=== PATIENT | female | born 2000 | race Caucasian/White ===

== ENCOUNTER 2022-10-03 20:18 | Inpatient (IN) | payer BC, SELFPAY ==
[2022-10-03 20:35] VITALS: BP 194/107; PULSE 120; RESP 22; TEMP 36.8; O2SAT 98; BMI 23.8
--- NOTE | 2022-10-03 20:39 | ECG_ITS ---
Test Reason : MED CLEAR Blood Pressure : / mmHG Vent. Rate : 110 BPM Atrial Rate : 110 BPM P-R Int : 184 ms QRS Dur : 086 ms QT Int : 314 ms P-R-T Axes : 056 074 021 degrees QTc Int : 424 ms Sinus tachycardia Otherwise normal ECG No previous ECGs available Referred By: Brigette Griffin Electronically Signed By:Jarrett Mittal
[2022-10-03 21:12] LABS: Basophils Percent Auto 0.4 % (0-2); Eosinophils Percent Auto 0.4 % (0-4); Hematocrit 41.2 % (37.0-47.0); Hemoglobin 13.6 g/dl (12.0-16.0); Imm Gran Abs Auto 0.02 X10*3/uL (0.00-0.03); Imm Gran Pct Auto 0.2 % (0.0-0.4); Lymphocytes Absolute Auto 1.9 X10*3/uL (1.2-4.9); Lymphocytes Percent Auto 22.7 % (20-40); MANUAL DIFF FLAG NO; Mean Corpuscular Hemoglobin 28.2 pg (27.0-33.0); Mean Corpuscular Volume 85.5 fL (80.0-98.0); Mean Platelet Volume 10.3 fL (9.4-12.3); Monocytes Absolute Auto 0.5 X10*3/uL (0.1-1.2); Monocytes Percent Auto 6.1 % (2-11); Neutrophils Percent Auto 70.2 % (45-73); Platelet Count 294 X10*3/uL (160-400); Red Blood Count 4.82 X10*6/uL (4.20-5.50); Red Cell Distribution Width 12.8 % (11.0-16.0); White Blood Count 8.5 X10*3/uL (4.8-10.8)
[2022-10-03 21:22] LABS: Appearance Urine Clear; Color Urine Yellow; Glucose Urine UA Negative (Negative); Leukocyte Esterase Urine Moderate (2+) (Negative); Nitrite Urine Negative (Negative); UMIC TRIGGER UA YES; Urine Blood Trace (Negative); Urine Ketones Trace mg/dL (Negative); Urine Protein Negative (Neg-Trace)
[2022-10-03 21:24] VITALS: BP 155/89; PULSE 118; RESP 20
[2022-10-03 21:27] LABS: Bacteria Urine 1+ (None Seen); Hyaline Casts Urine 0-2 /LPF (0-2); WBC Urine 21-50 /HPF (0-5)
--- NOTE | 2022-10-03 21:27 | ED_ITS ---
HPI - Psych General Chief Complaint: Psychiatric Symptoms Stated Complaint: crisis Time Seen by Provider: 10/03/22 21:25 Source: patient Mode of arrival: ambulatory Limitations: no limitations History of Present Illness HPI Narrative: Patient with depression on sertraline given by PCP has not seen a psychiatrist does not follow with any therapist with depressed for a while with a plan to kill herself stab herself very anxious on arrival no history of substance abuse patient was very anxious on arrival with blood pressure 194/107 with pulse rate of 120 no fever no chills denies any urinary symptoms Related Data Home Medications Medication Instructions Recorded Confirmed ibuprofen 400 mg tablet 1 tab PO Q6H PRN mild pain 10/03/22 10/03/22 norgestimate-ethinyl estradiol 1 tab PO DAILY 10/03/22 10/03/22 0.18 mg/0.215mg/0.25mg-35 mcg(28)tablet (Tri-Estarylla) sertraline 100 mg tablet 1 tab PO DAILY 10/03/22 10/03/22 Allergies Allergy/AdvReac Type Severity Reaction Status Date / Time No Known Allergies Allergy Unverified 05/04/20 17:16 Review of Systems Review of Systems: Yes all other systems are reviewed and are negative [facility] Social History Social History Advance Directives: No Advance Directives Information Provided: No Healthcare Proxy: No Guardian: No Physical Exam Vital Signs: Vital Signs: Last Vital Signs Temp 97.6 F 10/04/22 01:17 Pulse 107 H 10/04/22 01:17 Resp 15 10/04/22 01:17 BP 136/83 10/04/22 01:17 Pulse Ox 98 10/04/22 01:17 O2 Del Method 10/04/22 01:17 BMI result Body Mass Index 23.8 Appearance: Alert. Oriented X3. No acute distress. Anxious Eyes: PERRLA, No Nystagmus ENT: Pharynx normal. Oral Mucosa moist Neck: Normal inspection. Neck supple. CVS: Normal heart rate and rhythm. Pulses normal. Respiratory: No respiratory distress. Equal air entry bilateral, no wheezing/rales/rhonchi Abdomen: Soft and nontender. Bowel sounds are present, no mass palpable, no CVA tenderness Skin: Skin warm and dry. Normal skin color. Normal skin turgor. Extremities: No lower extremity edema. No calf tenderness psych: Depressed mood no clear-cut plan feels suicidal no hallucination or delusion Neuro: Oriented X 3. No motor deficit. No sensory deficit.No cerebellar signs , cranial nerves II-XII intact Course Reevaluation(s) Reevaluation #1: Patient seen by care team advised discharge patient home as respiratory fused to take the patient follow-up with outpatient Time: 03:33 Medications Administered Generic Name Dose Route Start Last Admin Trade Name Freq PRN Reason Stop Dose Admin Cefuroxime Axetil 250 mg 10/04/22 09:00 10/04/22 07:32 Cefuroxime Axetil 250 Mg Tablet PO 10/09/22 23:00 250 mg BID YAMILE Administration Ibuprofen 400 mg 10/04/22 01:17 10/04/22 01:52 Ibuprofen 400 Mg Tablet PO 400 mg Q6H PRN Administration mild pain Sertraline HCl 100 mg 10/04/22 09:00 10/04/22 07:32 Sertraline Hcl 100 Mg Tablet PO 100 mg DAILY YAMILE Administration Discontinued Medications Generic Name Dose Route Start Last Admin Trade Name Freq PRN Reason Stop Dose Admin Cefuroxime Axetil 250 mg 10/04/22 01:07 10/04/22 01:19 Cefuroxime Axetil 250 Mg Tablet PO 10/04/22 01:08 250 mg ONCE ONE Administration Lorazepam 2 mg 10/03/22 21:25 10/03/22 21:29 Lorazepam 1 Mg Tablet PO 10/03/22 21:26 2 mg ONCE ONE Administration Medical Decision Making Medical Decision Making MDM Narrative: Patient depression seen by care team plan for inpatient admission Lab Data [facility] Lab Attestation statement: I reviewed the patient's lab results. 10/03/22 21:02 10/03/22 21:02 Labs: Lab Results 10/03/22 10/03/22 10/03/22 Range/Units 21:02 21:02 21:02 WBC 8.5 (4.8-10.8) X10*3/uL RBC 4.82 (4.20-5.50) X10*6/uL Hgb 13.6 (12.0-16.0) g/dl Hct 41.2 (37.0-47.0) % MCV 85.5 (80.0-98.0) fL MCH 28.2 (27.0-33.0) pg MCHC 33.0 (31.0-35.0) g/dl RDW 12.8 (11.0-16.0) % Plt Count 294 (160-400) X10*3/uL MPV 10.3 (9.4-12.3) fL Immature Gran % (Auto) 0.2 (0.0-0.4) % Neut % (Auto) 70.2 (45-73) % Lymph % (Auto) 22.7 (20-40) % [place] % (Auto) 6.1 (2-11) % Eos % (Auto) 0.4 (0-4) % Baso % (Auto) 0.4 (0-2) % Lymph # (Auto) 1.9 (1.2-4.9) X10*3/uL [place] # (Auto) 0.5 (0.1-1.2) X10*3/uL Eos # (Auto) 0.0 (0.0-0.4) X10*3/uL Baso # (Auto) 0.0 (0.0-0.2) X10*3/uL Abs Immat Gran (auto) 0.02 (0.00-0.03) X10*3/uL Absolute Neuts (auto) 6.0 (2.0-8.3) x10*3/uL Absolute Nucleated RBC 0.000 (0.0-0.012) X10*3/uL Nucleated RBC % (auto) 0.0 (0.0-0.2) /100WBC Sodium 138 (135-145) mmol/L Potassium 3.8 (3.3-5.1) mmol/L Chloride 104 (96-108) mmol/L Carbon Dioxide 24 (22-29) mmol/L Anion Gap 14 (12-20) BUN 11 (9-16) mg/dL Creatinine 0.68 (0.5-1.4) mg/dL Estim Creat Clear Calc 104.3 Estimated GFR > 60 Random Glucose 138 H (60-115) mg/dL Calcium 9.3 (8.4-10.2) mg/dL Magnesium 1.6 (1.6-2.6) mg/dL Total Bilirubin 0.3 (0.0-1.0) mg/dL AST 17 (5-31) U/L ALT 13 (0-31) U/L Alkaline Phosphatase 76 (39-117) U/L Total Protein 7.3 (6.5-8.0) g/dL Albumin 4.3 (3.5-5.0) g/dL Lipase 17 (8-78) U/L TSH (0.32-4.0) uIU/mL Beta HCG, Quant < 2 mIU/mL Urine Color Urine Appearance Urine pH (5.0-9.0) Ur Specific [place] (1.005-1.025) Urine Protein (Neg-Trace) mg/dL Urine Glucose (UA) (Negative) mg/dL Urine Ketones (Negative) mg/dL Urine Blood (Negative) Urine Nitrite (Negative) Ur Leukocyte Esterase (Negative) Urine RBC (0-2) /HPF Urine WBC (0-5) /HPF Ur Squamous Epith Cells (0-2) /HPF Urine Bacteria (None Seen) Hyaline Casts (0-2) /LPF Urine Test (NEGATIVE) Urine Opiates Screen (Not Detect) Urine Fentanyl Screen (Not Detect) Ur Barbiturates Screen (Not Detect) Ur Phencyclidine Scrn (Not Detect) Ur Amphetamines Screen (Not Detect) U Benzodiazepines Scrn (Not Detect) Urine Cocaine Screen (Not Detect) U Marijuana (THC) Screen (Not Detect) Ethyl Alcohol < 10 mg/dL Influenza Type A (PCR) (Negative) Influenza Type B (PCR) (Negative) RSV RNA Qual (PCR) (Negative) SARS-CoV-2 RNA (RT-PCR) (Negative) 10/03/22 10/03/22 10/03/22 Range/Units 21:02 21:02 21:07 WBC (4.8-10.8) X10*3/uL RBC (4.20-5.50) X10*6/uL Hgb (12.0-16.0) g/dl Hct (37.0-47.0) % MCV (80.0-98.0) fL MCH (27.0-33.0) pg MCHC (31.0-35.0) g/dl RDW (11.0-16.0) % Plt Count (160-400) X10*3/uL MPV (9.4-12.3) fL Immature Gran % (Auto) (0.0-0.4) % Neut % (Auto) (45-73) % Lymph % (Auto) (20-40) % [place] % (Auto) (2-11) % Eos % (Auto) (0-4) % Baso % (Auto) (0-2) % Lymph # (Auto) (1.2-4.9) X10*3/uL [place] # (Auto) (0.1-1.2) X10*3/uL Eos # (Auto) (0.0-0.4) X10*3/uL Baso # (Auto) (0.0-0.2) X10*3/uL Abs Immat Gran (auto) (0.00-0.03) X10*3/uL Absolute Neuts (auto) (2.0-8.3) x10*3/uL Absolute Nucleated RBC (0.0-0.012) X10*3/uL Nucleated RBC % (auto) (0.0-0.2) /100WBC Sodium (135-145) mmol/L Potassium (3.3-5.1) mmol/L Chloride (96-108) mmol/L Carbon Dioxide (22-29) mmol/L Anion Gap (12-20) BUN (9-16) mg/dL Creatinine (0.5-1.4) mg/dL Estim Creat Clear Calc Estimated GFR Random Glucose (60-115) mg/dL Calcium (8.4-10.2) mg/dL Magnesium (1.6-2.6) mg/dL Total Bilirubin (0.0-1.0) mg/dL AST (5-31) U/L ALT (0-31) U/L Alkaline Phosphatase (39-117) U/L Total Protein (6.5-8.0) g/dL Albumin (3.5-5.0) g/dL Lipase (8-78) U/L TSH 3.19 (0.32-4.0) uIU/mL Beta HCG, Quant mIU/mL Urine Color Urine Appearance Urine pH (5.0-9.0) Ur Specific [place] (1.005-1.025) Urine Protein (Neg-Trace) mg/dL Urine Glucose (UA) (Negative) mg/dL Urine Ketones (Negative) mg/dL Urine Blood (Negative) Urine Nitrite (Negative) Ur Leukocyte Esterase (Negative) Urine RBC (0-2) /HPF Urine WBC (0-5) /HPF Ur Squamous Epith Cells (0-2) /HPF Urine Bacteria (None Seen) Hyaline Casts (0-2) /LPF Urine Test NEGATIVE (NEGATIVE) Urine Opiates Screen (Not Detect) Urine Fentanyl Screen (Not Detect) Ur Barbiturates Screen (Not Detect) Ur Phencyclidine Scrn (Not Detect) Ur Amphetamines Screen (Not Detect) U Benzodiazepines Scrn (Not Detect) Urine Cocaine Screen (Not Detect) U Marijuana (THC) Screen (Not Detect) Ethyl Alcohol mg/dL Influenza Type A (PCR) NEGATIVE (Negative) Influenza Type B (PCR) NEGATIVE (Negative) RSV RNA Qual (PCR) NEGATIVE (Negative) SARS-CoV-2 RNA (RT-PCR) NEGATIVE (Negative) 10/03/22 10/03/22 Range/Units 21:08 21:08 WBC (4.8-10.8) X10*3/uL RBC (4.20-5.50) X10*6/uL Hgb (12.0-16.0) g/dl Hct (37.0-47.0) % MCV (80.0-98.0) fL MCH (27.0-33.0) pg MCHC (31.0-35.0) g/dl RDW (11.0-16.0) % Plt Count (160-400) X10*3/uL MPV (9.4-12.3) fL Immature Gran % (Auto) (0.0-0.4) % Neut % (Auto) (45-73) % Lymph % (Auto) (20-40) % [place] % (Auto) (2-11) % Eos % (Auto) (0-4) % Baso % (Auto) (0-2) % Lymph # (Auto) (1.2-4.9) X10*3/uL [place] # (Auto) (0.1-1.2) X10*3/uL Eos # (Auto) (0.0-0.4) X10*3/uL Baso # (Auto) (0.0-0.2) X10*3/uL Abs Immat Gran (auto) (0.00-0.03) X10*3/uL Absolute Neuts (auto) (2.0-8.3) x10*3/uL Absolute Nucleated RBC (0.0-0.012) X10*3/uL Nucleated RBC % (auto) (0.0-0.2) /100WBC Sodium (135-145) mmol/L Potassium (3.3-5.1) mmol/L Chloride (96-108) mmol/L Carbon Dioxide (22-29) mmol/L Anion Gap (12-20) BUN (9-16) mg/dL Creatinine (0.5-1.4) mg/dL Estim Creat Clear Calc Estimated GFR Random Glucose (60-115) mg/dL Calcium (8.4-10.2) mg/dL Magnesium (1.6-2.6) mg/dL Total Bilirubin (0.0-1.0) mg/dL AST (5-31) U/L ALT (0-31) U/L Alkaline Phosphatase (39-117) U/L Total Protein (6.5-8.0) g/dL Albumin (3.5-5.0) g/dL Lipase (8-78) U/L TSH (0.32-4.0) uIU/mL Beta HCG, Quant mIU/mL Urine Color Yellow Urine Appearance Clear Urine pH 6.0 (5.0-9.0) Ur Specific [place] 1.020 (1.005-1.025) Urine Protein Negative (Neg-Trace) mg/dL Urine Glucose (UA) Negative (Negative) mg/dL Urine Ketones Trace (Negative) mg/dL Urine Blood Trace H (Negative) Urine Nitrite Negative (Negative) Ur Leukocyte Esterase Moderate (2+) H (Negative) Urine RBC 3-5 H (0-2) /HPF Urine WBC 21-50 H (0-5) /HPF Ur Squamous Epith Cells 6-10 (0-2) /HPF Urine Bacteria 1+ (None Seen) Hyaline Casts 0-2 (0-2) /LPF Urine Test (NEGATIVE) Urine Opiates Screen Not Detected (Not Detect) Urine Fentanyl Screen Not Detected (Not Detect) Ur Barbiturates Screen Not Detected (Not Detect) Ur Phencyclidine Scrn Not Detected (Not Detect) Ur Amphetamines Screen Not Detected (Not Detect) U Benzodiazepines Scrn Not Detected (Not Detect) Urine Cocaine Screen Not Detected (Not Detect) U Marijuana (THC) Screen POSITIVE H (Not Detect) Ethyl Alcohol mg/dL Influenza Type A (PCR) (Negative) Influenza Type B (PCR) (Negative) RSV RNA Qual (PCR) (Negative) SARS-CoV-2 RNA (RT-PCR) (Negative) Discharge Plan Discharge Clinical Impression: Suicidal ideation, Depression Patient Disposition: Still a Patient Prescriptions: No Action sertraline 100 mg tablet 1 tab PO DAILY ibuprofen 400 mg tablet 1 tab PO Q6H PRN (Reason: mild pain) norgestimate-ethinyl estradiol [Tri-Estarylla] 0.18/0.215/0.25 mg-35 mcg (28) tablet 1 tab PO DAILY Interventions: Hayes-Suicide Risk Severity Scale Last Done: 10/04/22 04:40
[2022-10-03] MEDS: LORazepam 1 MG TABLET 2 MG PO (21:29)
[2022-10-03 21:39] LABS: Amphetamine Screen Urine Not Detected (Not Detect); Barbiturates, Urine Not Detected (Not Detect); Benzodiazepines Screen Urine Not Detected (Not Detect); Cannabinoid Screen Urine POSITIVE (Not Detect); Cocaine Screen Urine Not Detected (Not Detect); Fentanyl, urine Not Detected (Not Detect); Opiate Screen Urine Not Detected (Not Detect); Phencyclidine Screen Urine Not Detected (Not Detect)
[2022-10-03 21:41] LABS: Alanine Aminotransferase 13 U/L (0-31); Albumin Level 4.3 g/dL (3.5-5.0); Alkaline Phosphatase 76 U/L (39-117); Anion Gap 14 (12-20); Aspartate Amino Transferase 17 U/L (5-31); Bilirubin Total 0.3 mg/dL (0.0-1.0); Blood Urea Nitrogen 11 mg/dL (9-16); Calcium 9.3 mg/dL (8.4-10.2); Carbon Dioxide 24 mmol/L (22-29); Chloride 104 mmol/L (96-108); Creatinine Clr Calc Pharmacy 104.3; Estimated Glomerular Filt Rate > 60; Glucose Random 138 mg/dL (60-115); Potassium 3.8 mmol/L (3.3-5.1); Sodium 138 mmol/L (135-145); Total Protein 7.3 g/dL (6.5-8.0)
[2022-10-03 21:49] LABS: Ethanol < 10 mg/dL; HCG Quantitative < 2 mIU/mL; Lipase 17 U/L (8-78); Magnesium 1.6 mg/dL (1.6-2.6)
[2022-10-03 22:02] LABS: TSH reflex Free T4 3.19 uIU/mL (0.32-4.0)
[2022-10-03 22:04] LABS: Influenza A PCR NEGATIVE (Negative); Influenza B PCR NEGATIVE (Negative); Resp Syncy Virus RNA Qual PCR NEGATIVE (Negative); SARS COV2 PCR INHOUSE NEGATIVE (Negative)
[2022-10-03 22:28] LABS: UPreg QC Valid YES; Urine Pregnancy NEGATIVE (NEGATIVE)
[2022-10-04 01:17] VITALS: BP 136/83; PULSE 107; RESP 15; TEMP 36.4; O2SAT 98
[2022-10-04] MEDS: Ibuprofen 400 MG TABLET PO (01:52)
--- NOTE | 2022-10-04 02:14 | PC.NURSE ---
Patient received Ativan 2 mg PO @ 2128 with + effect, Ceftin 250 mg PO @ 118 for UTI, Motrin 400 mg administered at 0152 with pending, Patient engaged [facility] team clinician, disposition is section 12 inpatient bed search, behavior non concerning, VSS, will continue to monitor.
--- NOTE | 2022-10-04 07:09 | PC.NURSE ---
assumed care of patient, pt resting comfortably, breakfast tray delivered, VSS, awaiting BH placement
[2022-10-04] MEDS: Sertraline HCL 100 MG TABLET PO (07:32)
--- NOTE | 2022-10-04 13:27 | PC.NURSE ---
nurse to nurse report given
[2022-10-04 16:48] VITALS: BP 132/82; PULSE 105; TEMP 36.4; O2SAT 96
--- NOTE | 2022-10-04 16:49 | PC.ADMIT ---
pt is a 22 year old female who presented to [facility] with SI with intent to stab herself. pt had AH/VH in the emergency room. pt has PMH of depression and SI. during admission, pt is pleasant and answered all questions. pt signed a 3 day on 10/04/22, so she could get back home to college. pt says setraline was helping her with the voices. start treatment plan and promote safety
--- NOTE | 2022-10-04 16:59 | PC.NURSE ---
pt signed a 3 day on 10/04/22.
--- NOTE | 2022-10-04 22:27 | PC.NURSE ---
pt would like her control and sertailine at night.
[2022-10-05 06:57] LABS: Estimated Average Glucose 85 mg/dL; Hemoglobin A1c % 4.6 %
[2022-10-05 07:00] LABS: Cholesterol 189 mg/dL; HDL Cholesterol 60 mg/dL; LDL Cholesterol Calculated 103 mg/dl; Triglycerides 134 mg/dL
--- NOTE | 2022-10-05 08:05 | HO.PSYADMNOT ---
[facility] Date of Service: 10/05/22 Chief Complaint: si Sources of Information: patient interviewed, chart reviewed and crisis/core team assessment reviewed HPI Subjective Notes: Conditional Voluntary and 3 Day Healthcare Proxy: No Guardianship: No Medical Problems Affecting Mental Status: No Narrative: David is a 22-year-old white, single, C student. This is her 1st psychiatric hospitalization. She states that she started to have strong feelings of irritability, anger hand suicidal ideations. She denied any specific plans but in the emergency room she had mentioned about urges to stab herself in the abdomen. She denies any known triggers or events that may have led to this. She also was concerned about hurting others without any specific plans to hurt anyone in particular. She has no history of such behavior towards others. She lives at home with her parents. She decided that she did not feel safe and came to the emergency room and eventually signed herself in. She states that she has had problems with depression and anxiety for a few years and has been on Zoloft now, 100 mg for about a year and a half with marked improvements in all of her symptoms. No recent changes to her dose. She gets this through her software maintenance engineer, Dr. Phillips. She denies any history of substance abuse. She has been eating and sleeping adequately. No major weight changes. She is not currently seeing a therapist but has in the past. When asked about anything else that may be important to know about her she stated ?being queer?. She denies being out with this and something that she is wondering about. Past Psychiatric History: Outpatient treatment. No psychotherapy currently Medical Evaluation Reviewed: Yes (UTI-being treated) [facility] Narrative: Current episode of UTI Narrative: None Family History: She states that all of her family members, parents, grandparents, brother have problems with anxiety and depression. No specific treatments. Social History: David is the youngest of 2. She has a brother who is about a year older and works with their father as a singh. She states that she graduated from high school and did quite well being the 14th in her class and is now at [employer] studying art. She denies any history of abuse growing up. She states that she has some friends. She is not in any relationships. She has no children. Substance History: Denied Trauma History: Denied Diagnostics Vital Signs (24Hr): Vital Signs - 24 hr 10/04/22 16:48 Temperature 97.6 F Pulse Rate 105 H Blood Pressure 132/82 Pulse Oximetry 96 Oxygen Delivery Method Room Air BMI result Body Mass Index 23.8 Labs 10/03/22 21:02 10/03/22 21:02 Labs: Laboratory Results - last 48 hr 10/03/22 10/03/22 10/03/22 21:02 21:02 21:02 WBC 8.5 RBC 4.82 Hgb 13.6 Hct 41.2 MCV 85.5 MCH 28.2 MCHC 33.0 RDW 12.8 Plt Count 294 MPV 10.3 Immature Gran % (Auto) 0.2 Neut % (Auto) 70.2 Lymph % (Auto) 22.7 [place] % (Auto) 6.1 Eos % (Auto) 0.4 Baso % (Auto) 0.4 Lymph # (Auto) 1.9 [place] # (Auto) 0.5 Eos # (Auto) 0.0 Baso # (Auto) 0.0 Abs Immat Gran (auto) 0.02 Absolute Neuts (auto) 6.0 Absolute Nucleated RBC 0.000 Nucleated RBC % (auto) 0.0 Sodium 138 Potassium 3.8 Chloride 104 Carbon Dioxide 24 Anion Gap 14 BUN 11 Creatinine 0.68 Estim Creat Clear Calc 104.3 Estimated GFR > 60 Random Glucose 138 H Estimat Average Glucose Hemoglobin A1c % Calcium 9.3 Magnesium 1.6 Total Bilirubin 0.3 AST 17 ALT 13 Alkaline Phosphatase 76 Total Protein 7.3 Albumin 4.3 Triglycerides Cholesterol LDL Cholesterol, Calc HDL Cholesterol Lipase 17 TSH Beta HCG, Quant < 2 Urine Color Urine Appearance Urine pH Ur Specific [place] Urine Protein Urine Glucose (UA) Urine Ketones Urine Blood Urine Nitrite Ur Leukocyte Esterase Urine RBC Urine WBC Ur Squamous Epith Cells Urine Bacteria Hyaline Casts Urine Test Urine Opiates Screen Urine Fentanyl Screen Ur Barbiturates Screen Ur Phencyclidine Scrn Ur Amphetamines Screen U Benzodiazepines Scrn Urine Cocaine Screen U Marijuana (THC) Screen Ethyl Alcohol < 10 Influenza Type A (PCR) Influenza Type B (PCR) RSV RNA Qual (PCR) SARS-CoV-2 RNA (RT-PCR) 10/03/22 10/03/22 10/03/22 21:02 21:02 21:07 WBC RBC Hgb Hct MCV MCH MCHC RDW Plt Count MPV Immature Gran % (Auto) Neut % (Auto) Lymph % (Auto) [place] % (Auto) Eos % (Auto) Baso % (Auto) Lymph # (Auto) [place] # (Auto) Eos # (Auto) Baso # (Auto) Abs Immat Gran (auto) Absolute Neuts (auto) Absolute Nucleated RBC Nucleated RBC % (auto) Sodium Potassium Chloride Carbon Dioxide Anion Gap BUN Creatinine Estim Creat Clear Calc Estimated GFR Random Glucose Estimat Average Glucose Hemoglobin A1c % Calcium Magnesium Total Bilirubin AST ALT Alkaline Phosphatase Total Protein Albumin Triglycerides Cholesterol LDL Cholesterol, Calc HDL Cholesterol Lipase TSH 3.19 Beta HCG, Quant Urine Color Urine Appearance Urine pH Ur Specific [place] Urine Protein Urine Glucose (UA) Urine Ketones Urine Blood Urine Nitrite Ur Leukocyte Esterase Urine RBC Urine WBC Ur Squamous Epith Cells Urine Bacteria Hyaline Casts Urine Test NEGATIVE Urine Opiates Screen Urine Fentanyl Screen Ur Barbiturates Screen Ur Phencyclidine Scrn Ur Amphetamines Screen U Benzodiazepines Scrn Urine Cocaine Screen U Marijuana (THC) Screen Ethyl Alcohol Influenza Type A (PCR) NEGATIVE Influenza Type B (PCR) NEGATIVE RSV RNA Qual (PCR) NEGATIVE SARS-CoV-2 RNA (RT-PCR) NEGATIVE 10/03/22 10/03/22 10/05/22 21:08 21:08 06:26 WBC RBC Hgb Hct MCV MCH MCHC RDW Plt Count MPV Immature Gran % (Auto) Neut % (Auto) Lymph % (Auto) [place] % (Auto) Eos % (Auto) Baso % (Auto) Lymph # (Auto) [place] # (Auto) Eos # (Auto) Baso # (Auto) Abs Immat Gran (auto) Absolute Neuts (auto) Absolute Nucleated RBC Nucleated RBC % (auto) Sodium Potassium Chloride Carbon Dioxide Anion Gap BUN Creatinine Estim Creat Clear Calc Estimated GFR Random Glucose Estimat Average Glucose 85 Hemoglobin A1c % 4.6 Calcium Magnesium Total Bilirubin AST ALT Alkaline Phosphatase Total Protein Albumin Triglycerides Cholesterol LDL Cholesterol, Calc HDL Cholesterol Lipase TSH Beta HCG, Quant Urine Color Yellow Urine Appearance Clear Urine pH 6.0 Ur Specific [place] 1.020 Urine Protein Negative Urine Glucose (UA) Negative Urine Ketones Trace Urine Blood Trace H Urine Nitrite Negative Ur Leukocyte Esterase Moderate (2+) H Urine RBC 3-5 H Urine WBC 21-50 H Ur Squamous Epith Cells 6-10 Urine Bacteria 1+ Hyaline Casts 0-2 Urine Test Urine Opiates Screen Not Detected Urine Fentanyl Screen Not Detected Ur Barbiturates Screen Not Detected Ur Phencyclidine Scrn Not Detected Ur Amphetamines Screen Not Detected U Benzodiazepines Scrn Not Detected Urine Cocaine Screen Not Detected U Marijuana (THC) Screen POSITIVE H Ethyl Alcohol Influenza Type A (PCR) Influenza Type B (PCR) RSV RNA Qual (PCR) SARS-CoV-2 RNA (RT-PCR) 10/05/22 06:26 WBC RBC Hgb Hct MCV MCH MCHC RDW Plt Count MPV Immature Gran % (Auto) Neut % (Auto) Lymph % (Auto) [place] % (Auto) Eos % (Auto) Baso % (Auto) Lymph # (Auto) [place] # (Auto) Eos # (Auto) Baso # (Auto) Abs Immat Gran (auto) Absolute Neuts (auto) Absolute Nucleated RBC Nucleated RBC % (auto) Sodium Potassium Chloride Carbon Dioxide Anion Gap BUN Creatinine Estim Creat Clear Calc Estimated GFR Random Glucose Estimat Average Glucose Hemoglobin A1c % Calcium Magnesium Total Bilirubin AST ALT Alkaline Phosphatase Total Protein Albumin Triglycerides 134 Cholesterol 189 LDL Cholesterol, Calc 103 HDL Cholesterol 60 Lipase TSH Beta HCG, Quant Urine Color Urine Appearance Urine pH Ur Specific [place] Urine Protein Urine Glucose (UA) Urine Ketones Urine Blood Urine Nitrite Ur Leukocyte Esterase Urine RBC Urine WBC Ur Squamous Epith Cells Urine Bacteria Hyaline Casts Urine Test Urine Opiates Screen Urine Fentanyl Screen Ur Barbiturates Screen Ur Phencyclidine Scrn Ur Amphetamines Screen U Benzodiazepines Scrn Urine Cocaine Screen U Marijuana (THC) Screen Ethyl Alcohol Influenza Type A (PCR) Influenza Type B (PCR) RSV RNA Qual (PCR) SARS-CoV-2 RNA (RT-PCR) Meds/Allergies Meds Home Medications Medication Instructions Recorded Confirmed Type ibuprofen 400 mg tablet 1 tab PO Q6H PRN mild pain 10/03/22 10/03/22 History norgestimate-ethinyl estradiol 1 tab PO DAILY 10/03/22 10/03/22 History 0.18 mg/0.215mg/0.25mg-35 mcg(28)tablet (Tri-Estarylla) sertraline 100 mg tablet 1 tab PO DAILY 10/03/22 10/03/22 History Allergies Allergies Allergy/AdvReac Type Severity Reaction Status Date / Time No Known Allergies Allergy Unverified 05/04/20 17:16 Mental Status Exam Mental Status Exam Narrative: David was seen the day after admission. She is alert, oriented, pleasant and interactive. Speech is normal. Good eye contact. Affect is appropriate and varied. Moderate dysphoria present. No overt anxiety. She denies any auditory or visual hallucinations but historically has had some history of auditory hallucinations a couple of years ago for which ?Zoloft? was very helpful when she started it. Cognitively she is intact. Judgment is intact Assessment & Plan Assessment & Plan (1) Depression: Status: Acute Code(s): F32.A - Depression, unspecified (2) Suicidal ideation: Status: Acute Code(s): R45.851 - Suicidal ideations Plan David meets criteria for hospital level of care for safety and stabilization. We discussed the importance of being connected to an outpatient therapist to explore some issues pertaining to her sexuality. In light of the fact that Zoloft has been extremely helpful to her I suggested increasing it to 150 mg for now and she is agreeable with that. She will meet with her treatment team on 10/08/22. She has signed a 3 day notice but was not pushing for discharge. Patient educated on: medication risk/benefits Reason for continued inpatient stay Substantial Risk for: harm to self Statement Statement: I have reviewed the history and physical and performed a pertinent examination on my patient. No changes have occurred unless specified. If the History and Physical was not performed prior to admission, the Hospitalist's service will be consulted for completing the admission physical. Time Spent With Patient Time: Total time managing care of this patient today _50___ minutes.
[2022-10-05] MEDS: Sertraline HCL 100 MG TABLET PO (09:11)
[2022-10-05 10:54] VITALS: BP 148/78; PULSE 16; RESP 16; TEMP 36.9; O2SAT 95
[2022-10-05 15:52] VITALS: BP 137/84; PULSE 82; RESP 16; TEMP 36.6; O2SAT 98
[2022-10-06 08:02] VITALS: BP 128/84; PULSE 109; RESP 16; TEMP 37.1; O2SAT 98
--- NOTE | 2022-10-06 08:26 | P.PNPSI_ITS ---
Subjective Subjective Date of Service: 10/06/22 Reason For Visit: si Subjective Notes: Conditional Voluntary Healthcare Proxy: No Guardianship: No Medical Problems Affecting Mental Status: No Interim History: Patient was seen and discussed in rounds today. Records and plans were reviewed. She has been doing well and feels much better. She did tolerate the increase of Zoloft with no complaints or side effects. She was asking to leave, given how much better she is feeling but I encouraged her to stay so she can get connected to outpatient services which might otherwise take long time on her own. She reluctantly accepted that. She is participating and is interacting with others and staff. No changes were made today Medication Compliance: Yes Side effects from medications: No Attending Groups: Yes Review of Systems Review of Systems Yes all other systems are reviewed and are negative Mental Status Exam Mental Status Exam Narrative: In today's visit she is alert, oriented and pleasant. Normal speech. Good eye contact. Affect is appropriate and more varied. No signs of psychosis. Denies any SI/HI. Cognitively intact. Judgment is intact Diagnostics Vital Signs (24Hr): Vital Signs - 24 hr 10/05/22 10:54 10/05/22 15:52 10/06/22 08:02 Temperature 98.5 F 97.8 F 98.8 F Pulse Rate 16 L 82 109 H Respiratory Rate 16 16 16 Blood Pressure 148/78 H 137/84 128/84 Pulse Oximetry 95 98 98 Oxygen Delivery Method Room Air Room Air Room Air BMI result Body Mass Index 23.8 Labs 10/03/22 21:02 10/03/22 21:02 Labs: Laboratory Results - last 48 hr 10/05/22 10/05/22 06:26 06:26 Estimat Average Glucose 85 Hemoglobin A1c % 4.6 Triglycerides 134 Cholesterol 189 LDL Cholesterol, Calc 103 HDL Cholesterol 60 Medications Medications Current Medications Al Hydroxide/Mg Hydroxide (Magnesium Hydrox/Alum Hydrox 30 Ml Oral.Susp) 30 ml PO Q6H PRN PRN Reason: Heartburn/Nausea Cefuroxime Axetil (Cefuroxime Axetil 250 Mg Tablet) 250 mg PO BID YAMILE Stop: 10/09/22 23:00 Last Admin: 10/05/22 19:51 Dose: 250 mg Hydroxyzine HCl (Hydroxyzine Hcl 25 Mg Tablet) 25 mg PO Q6H PRN PRN Reason: Anxiety Ibuprofen (Ibuprofen 400 Mg Tablet) 400 mg PO Q6H PRN PRN Reason: mild pain Last Admin: 10/04/22 01:52 Dose: 400 mg Magnesium Hydroxide (Milk Of Magnesia 30 Ml Oral.Susp) 30 ml PO DAILY PRN PRN Reason: Constipation Nicotine (Nicotine 21 Mg Patch.Td24) 21 mg TRANSDERMA DAILY PRN PRN Reason: smoking cessation Nicotine Polacrilex (Nicotine Polacrilex 2 Mg Gum) 4 mg BUCCAL Q2H PRN PRN Reason: Nicotine Cravings Non-Formulary Medication (Norgestimate-Ethinyl Estradiol [Tri-Estarylla]) 1 tab PO BEDTIME [facility] Last Admin: 10/05/22 19:23 Dose: 1 tab Sertraline HCl (Sertraline Hcl 100 Mg Tablet) 100 mg PO DAILY [facility] Last Admin: 10/05/22 09:11 Dose: 100 mg Trazodone HCl (Trazodone Hcl 50 Mg Tablet) 150 mg PO BEDTIME MRX1 PRN PRN Reason: Insomnia Allergies Allergies Allergy/AdvReac Type Severity Reaction Status Date / Time No Known Allergies Allergy Unverified 05/04/20 17:16 Assessment & Plan Assessment & Plan (1) Depression: Status: Acute Code(s): F32.A - Depression, unspecified (2) Suicidal ideation: Status: Acute Code(s): R45.851 - Suicidal ideations Plan David meets criteria for hospital level of care for safety and stabilization. We discussed the importance of being connected to an outpatient therapist to explore some issues pertaining to her sexuality. In light of the fact that Zoloft has been extremely helpful to her I suggested increasing it to 150 mg for now and she is agreeable with that. She will meet with her treatment team on 10/08/22. She has signed a 3 day notice but was not pushing for discharge. Reason for contiued inpatient stay Substantial Risk for: harm to self Time Spent With Patient Time: Total time managing care of this patient today ____ minutes.
[2022-10-06] MEDS: Sertraline HCL 100 MG TABLET PO (08:30)
--- NOTE | 2022-10-06 09:54 | P.DS_ITS ---
DS: Providers Provider Date of Service: 10/06/22 Date of admission: 10/04/22 14:05 Date of discharge: 10/06/22 Primary care physician: Bernardo Phillips MD Admitting clinician: Chris Horner Attending physician on admission: Chris Horner Consults: None Attending physician on discharge: Chris Horner Discharging clinician: Chris Horner DS: Diagnosis Discharge Diagnosis (1) Depression: Status: Acute (2) Suicidal ideation: Status: Acute DS: Medications Discharge Medications Home Medications: Home Medications Medication Instructions Recorded Confirmed ibuprofen 400 mg tablet 1 tab PO Q6H PRN mild pain 10/03/22 10/03/22 norgestimate-ethinyl estradiol 1 tab PO DAILY 10/03/22 10/03/22 0.18 mg/0.215mg/0.25mg-35 mcg(28)tablet (Tri-Estarylla) sertraline 100 mg tablet 1 tab PO DAILY 10/03/22 10/03/22 Mental Status Exam Mental Status Exam Narrative: She is alert, oriented and pleasant. Normal speech. Good eye contact. Affect is appropriate and varied. No suicidal ideations upon inquiry. Cognitively intact. Judgment is intact Data Data Completed and Pending Completed studies during hospitalization [Text1]: 10/03/22 10/03/22 10/03/22 21:02 21:02 21:02 WBC 8.5 RBC 4.82 Hgb 13.6 Hct 41.2 MCV 85.5 MCH 28.2 MCHC 33.0 RDW 12.8 Plt Count 294 MPV 10.3 Immature Gran % (Auto) 0.2 Neut % (Auto) 70.2 Lymph % (Auto) 22.7 [place] % (Auto) 6.1 Eos % (Auto) 0.4 Baso % (Auto) 0.4 Lymph # (Auto) 1.9 [place] # (Auto) 0.5 Eos # (Auto) 0.0 Baso # (Auto) 0.0 Abs Immat Gran (auto) 0.02 Absolute Neuts (auto) 6.0 Absolute Nucleated RBC 0.000 Nucleated RBC % (auto) 0.0 Sodium 138 Potassium 3.8 Chloride 104 Carbon Dioxide 24 Anion Gap 14 BUN 11 Creatinine 0.68 Estim Creat Clear Calc 104.3 Estimated GFR > 60 Random Glucose 138 H Estimat Average Glucose Hemoglobin A1c % Calcium 9.3 Magnesium 1.6 Total Bilirubin 0.3 AST 17 ALT 13 Alkaline Phosphatase 76 Total Protein 7.3 Albumin 4.3 Triglycerides Cholesterol LDL Cholesterol, Calc HDL Cholesterol Lipase 17 TSH Beta HCG, Quant < 2 Urine Color Urine Appearance Urine pH Ur Specific [place] Urine Protein Urine Glucose (UA) Urine Ketones Urine Blood Urine Nitrite Ur Leukocyte Esterase Urine RBC Urine WBC Ur Squamous Epith Cells Urine Bacteria Hyaline Casts Urine Test Urine Opiates Screen Urine Fentanyl Screen Ur Barbiturates Screen Ur Phencyclidine Scrn Ur Amphetamines Screen U Benzodiazepines Scrn Urine Cocaine Screen U Marijuana (THC) Screen Ethyl Alcohol < 10 Influenza Type A (PCR) Influenza Type B (PCR) RSV RNA Qual (PCR) SARS-CoV-2 RNA (RT-PCR) 10/03/22 10/03/22 10/03/22 21:02 21:02 21:07 WBC RBC Hgb Hct MCV MCH MCHC RDW Plt Count MPV Immature Gran % (Auto) Neut % (Auto) Lymph % (Auto) [place] % (Auto) Eos % (Auto) Baso % (Auto) Lymph # (Auto) [place] # (Auto) Eos # (Auto) Baso # (Auto) Abs Immat Gran (auto) Absolute Neuts (auto) Absolute Nucleated RBC Nucleated RBC % (auto) Sodium Potassium Chloride Carbon Dioxide Anion Gap BUN Creatinine Estim Creat Clear Calc Estimated GFR Random Glucose Estimat Average Glucose Hemoglobin A1c % Calcium Magnesium Total Bilirubin AST ALT Alkaline Phosphatase Total Protein Albumin Triglycerides Cholesterol LDL Cholesterol, Calc HDL Cholesterol Lipase TSH 3.19 Beta HCG, Quant Urine Color Urine Appearance Urine pH Ur Specific [place] Urine Protein Urine Glucose (UA) Urine Ketones Urine Blood Urine Nitrite Ur Leukocyte Esterase Urine RBC Urine WBC Ur Squamous Epith Cells Urine Bacteria Hyaline Casts Urine Test NEGATIVE Urine Opiates Screen Urine Fentanyl Screen Ur Barbiturates Screen Ur Phencyclidine Scrn Ur Amphetamines Screen U Benzodiazepines Scrn Urine Cocaine Screen U Marijuana (THC) Screen Ethyl Alcohol Influenza Type A (PCR) NEGATIVE Influenza Type B (PCR) NEGATIVE RSV RNA Qual (PCR) NEGATIVE SARS-CoV-2 RNA (RT-PCR) NEGATIVE 10/03/22 10/03/22 10/05/22 21:08 21:08 06:26 WBC RBC Hgb Hct MCV MCH MCHC RDW Plt Count MPV Immature Gran % (Auto) Neut % (Auto) Lymph % (Auto) [place] % (Auto) Eos % (Auto) Baso % (Auto) Lymph # (Auto) [place] # (Auto) Eos # (Auto) Baso # (Auto) Abs Immat Gran (auto) Absolute Neuts (auto) Absolute Nucleated RBC Nucleated RBC % (auto) Sodium Potassium Chloride Carbon Dioxide Anion Gap BUN Creatinine Estim Creat Clear Calc Estimated GFR Random Glucose Estimat Average Glucose 85 Hemoglobin A1c % 4.6 Calcium Magnesium Total Bilirubin AST ALT Alkaline Phosphatase Total Protein Albumin Triglycerides Cholesterol LDL Cholesterol, Calc HDL Cholesterol Lipase TSH Beta HCG, Quant Urine Color Yellow Urine Appearance Clear Urine pH 6.0 Ur Specific [place] 1.020 Urine Protein Negative Urine Glucose (UA) Negative Urine Ketones Trace Urine Blood Trace H Urine Nitrite Negative Ur Leukocyte Esterase Moderate (2+) H Urine RBC 3-5 H Urine WBC 21-50 H Ur Squamous Epith Cells 6-10 Urine Bacteria 1+ Hyaline Casts 0-2 Urine Test Urine Opiates Screen Not Detected Urine Fentanyl Screen Not Detected Ur Barbiturates Screen Not Detected Ur Phencyclidine Scrn Not Detected Ur Amphetamines Screen Not Detected U Benzodiazepines Scrn Not Detected Urine Cocaine Screen Not Detected U Marijuana (THC) Screen POSITIVE H Ethyl Alcohol Influenza Type A (PCR) Influenza Type B (PCR) RSV RNA Qual (PCR) SARS-CoV-2 RNA (RT-PCR) 10/05/22 06:26 WBC RBC Hgb Hct MCV MCH MCHC RDW Plt Count MPV Immature Gran % (Auto) Neut % (Auto) Lymph % (Auto) [place] % (Auto) Eos % (Auto) Baso % (Auto) Lymph # (Auto) [place] # (Auto) Eos # (Auto) Baso # (Auto) Abs Immat Gran (auto) Absolute Neuts (auto) Absolute Nucleated RBC Nucleated RBC % (auto) Sodium Potassium Chloride Carbon Dioxide Anion Gap BUN Creatinine Estim Creat Clear Calc Estimated GFR Random Glucose Estimat Average Glucose Hemoglobin A1c % Calcium Magnesium Total Bilirubin AST ALT Alkaline Phosphatase Total Protein Albumin Triglycerides 134 Cholesterol 189 LDL Cholesterol, Calc 103 HDL Cholesterol 60 Lipase TSH Beta HCG, Quant Urine Color Urine Appearance Urine pH Ur Specific [place] Urine Protein Urine Glucose (UA) Urine Ketones Urine Blood Urine Nitrite Ur Leukocyte Esterase Urine RBC Urine WBC Ur Squamous Epith Cells Urine Bacteria Hyaline Casts Urine Test Urine Opiates Screen Urine Fentanyl Screen Ur Barbiturates Screen Ur Phencyclidine Scrn Ur Amphetamines Screen U Benzodiazepines Scrn Urine Cocaine Screen U Marijuana (THC) Screen Ethyl Alcohol Influenza Type A (PCR) Influenza Type B (PCR) RSV RNA Qual (PCR) SARS-CoV-2 RNA (RT-PCR) DS: Summary Hospital Course Hospital Course: [address] [address] Psychiatry Admission Note (In) Signed Patient: David Piedra MR#: [id number] : 2000 Acct:[id number] Age/Sex: 22 / F Loc: HO.PM5 [id number] ?? ? Attending Dr: Elias Mcarthur MD cc: ~ HPI Date of Service: 10/05/22 Chief Complaint: si Sources of Information: patient interviewed, chart reviewed and crisis/core team assessment reviewed HPI Subjective Notes: Conditional Voluntary and 3 Day Healthcare Proxy: No Guardianship: No Medical Problems Affecting Mental Status: No Narrative: David is a 22-year-old white, single, [employer] student.? This is her 1st psychiatric hospitalization.? She states that she started to have strong feelings of irritability, anger hand suicidal ideations.? She denied any specific plans but in the emergency room she had mentioned about urges to stab herself in the abdomen.? She denies any known triggers or events that may have led to this.? She also was concerned about hurting others without any specific plans to hurt anyone in particular.? She has no history of such behavior towards others.? She lives at home with her parents.? She decided that she did not feel safe and came to the emergency room and eventually signed herself in.? She states that she has had problems with depression and anxiety for a few years and has been on Zoloft now, 100 mg for about a year and a half with marked improvements in all of her symptoms.? No recent changes to her dose.? She gets this through her library helper, Dr. Phillips.? She denies any history of substance abuse.? She has been eating and sleeping adequately.? No major weight changes.? She is not currently seeing a therapist but has in the past.? When asked about anything else that may be important to know about her she stated ?being queer?.? She denies being out with this and something that she is wondering about. She has been feeling somewhat anxious and on safe on the unit and denies any suicidal ideations and I tried to convince her to stay to get social science professor help with outpatient connections but she wants to leave. Her mother came in today and I met with her and she feels comfortable taking her home. We will discharge her AMA. She has enough medications at home. Her Zoloft was increased to 150 mg. She was pleasant and engaged and cooperative during her brief stay here In today's visit prior to discharge she is alert, oriented and pleasant. Normal speech. Good eye contact. Affect is appropriate and varied. She denies any suicidal ideations. Cognitively she is intact. Judgment is intact Status at Discharge Cognitive/behavioral status at discharge: Stable Functional status at discharge: independent ambulation Overall status at discharge: patient is back to baseline Time Spent with Patient Time attestation: Total time managing care of this patient today _30___ minutes. Discharge Plan Discharge Anticipated Discharge Date/Time: 10/06/22 10:02 Patient Disposition: Left Against Medical Advice Discharge Diagnosis: Major depression Referrals: Bernardo Phillips MD [Primary Care Provider] - 1 Week [facility] [place] Discharge Medications: Continued sertraline 100 mg tablet 1 tab PO DAILY ibuprofen 400 mg tablet 1 tab PO Q6H PRN (Reason: mild pain) norgestimate-ethinyl estradiol [Tri-Estarylla] 0.18/0.215/0.25 mg-35 mcg (28) tablet 1 tab PO DAILY Discharge Orders: Discharge Order (Routine); Ordered 10/06/22 Ordered By: Chris Horner Diet: Regular diet Activity on Discharge: As tolerated Stand Alone Forms: Community Support Care Plan Goals: discharged to mother /home and PCP Health Concerns: None Plan of Treatment: Follow with PCP Assessment: Pleasant and cooperative with no SI Discharge Date/Time: 10/06/22 11:10
== END 2022-10-06 11:10 | disposition left against medical advice (07) | DRG 754 ==
LOC: HO.ED 10-04 12:29 → HO.PM5 10-04 14:13
PROVIDERS: Physician Assistant Medical; Admitting Provider Psychiatry & Neurology Psychiatry; Emergency Provider Internal Medicine; PCP Pediatrics; Visit Provider Psychiatry & Neurology Psychiatry
DX: F32.9 Major depressive disorder, single episode, unspecified (principal); R45.851 Suicidal ideations; Z20.822 Contact with and (suspected) exposure to COVID-19; Z79.3 Long term (current) use of hormonal contraceptives
CPT/HCPCS: 0241U; 36415; 80053; 80061; 80307; 81001; 81025; 82077; 83036; 83690; 83735; 84443; 84702; 85025; 93005; 99284; S9485